=== PATIENT | male | born 1985 | race Caucasian/White ===

== ENCOUNTER 2022-03-20 05:50 | Day surgery (SDC) | payer OTHER ==
[~2022-03-20] VITALS: Ht 170.2 cm; Wt 68.0 kg
[2022-03-20 06:41] LABS: BASOPHILS # (AUTO) 0.1 K/uL (0.00-0.22); EOSINOPHILS # (AUTO) 0.4 K/uL (0-0.4); EOSINOPHILS % (AUTO) 4.8 % (0.0-4.0); HEMATOCRIT 45.3 % (36-52); HEMOGLOBIN 15.6 g/dL (12.0-18.0); LYMPHOCYTES # (AUTO) 2.9 K/uL (2.0-11.5); LYMPHOCYTES % (AUTO) 32.4 % (20.5-51.1); MEAN CORPUSCULAR HEMOGLOBIN 30 pg (27-31); MEAN CORPUSCULAR HGB CONC 34 g/dL (33-37); MONOCYTES # (AUTO) 0.7 K/uL (0.8-1.0); MONOCYTES % (AUTO) 8.1 % (1.7-9.3); NEUTROPHILS # (AUTO) 4.8 K/uL (1.8-7.7); NEUTROPHILS % (AUTO) 53.7 % (42.2-75.2); PLATELET COUNT (AUTO) 341 K/uL (140-450); RED BLOOD CELL COUNT(AUTO) 5.21 MIL/uL (4.20-6.10); RED CELL DISTRIBUTION WIDTH 13.5 % (11.6-13.7)
[2022-03-20 07:02] LABS: PROTHROMBIN TIME 9.3 secs (10.8-13.4)
[2022-03-20] MEDS ORDERED: LIDOCAINE 2% 1000 MG/50 ML VIAL INJ ONE (07:45)
== END 2022-03-20 09:10 | disposition home or self-care (01) ==
LOC: MDS 05:50 → MMU 05:51 → MDS 09:10
PROVIDERS: ATTEND Internal Medicine Gastroenterology
DX: R94.5 Abnormal results of liver function studies (principal); F17.210 Nicotine dependence, cigarettes, uncomplicated; Z79.01 Long term (current) use of anticoagulants; Z20.822 Contact with and (suspected) exposure to COVID-19
CPT/HCPCS: 36415; 47000; 76942; 85025; 85610; 85730; 87426; J2001; Q0092